=== PATIENT | female | born 1965 | race Caucasian/White ===

== ENCOUNTER → 2017-01-04 | Outpatient (CLI) | payer OTHER ==
[~2017-01-04] VITALS: Ht 172.7 cm; Wt 81.6 kg
[~2017-01-04] MED LIST: ASPIRIN 32325 MG/TAB PO; FLEXERIL 1010 MG/TAB PO; KLONOPIN 0.5MG0.5 MG PO; LIPITOR 40MG TA40 MG PO; METHOTREXA2.5 MG/TAB PO; MICARDIS HCT 121 TAB PO; NITROSTAT0.4 MG/TAB SL; NORCO 325 MG-51 TAB PO; NORVASC2.5 MG; PLAVIX 75MG TAB75 MG PO; RESTORIL 77.5 MG/CAP PO; SYNTHROID 0.10.15 MG PO; SYNTHROID0.137 MG PO; SYNTHROID0.175 MG PO; TREXALL10 MG PO; TYLENOL 325MG325 MG PO
[2017-01-04 08:44] VITALS: BP 159/102; PULSE 107
[2017-01-04 09:08] LABS: PROTHROMBIN TIME 11.6 SECONDS (9.7-12.8)
[2017-01-04 10:00] VITALS: BP 164/108; PULSE 89
[2017-01-04 10:11] VITALS: BP 165/119; PULSE 89
[2017-01-04 10:16] VITALS: BP 156/113; PULSE 88
[2017-01-04 10:37] VITALS: BP 190/132; PULSE 92
[2017-01-04 10:41] VITALS: BP 123/84; PULSE 88
== END ==
LOC: COL.RAD 08:17
PROVIDERS: Physician Assistant
DX: L40.9 Psoriasis, unspecified (principal); Z79.899 Other long term (current) drug therapy